=== PATIENT | female | born 1975 | race Caucasian/White ===

== ENCOUNTER 2021-08-08 08:09 | Emergency (ER) | payer OTHER, SELFPAY ==
[2021-08-08] VITALS (20 sets, daily range): BP systolic 108–157; BP diastolic 63–94; PULSE 62–79; RESP 18; TEMP 36.7; O2SAT 94–100; BMI 50.8
--- NOTE | 2021-08-08 08:53 | DI.MRI.S_ITS ---
PROCEDURE: MR STROKE Pre- and post-contrast brain MRI, non-contrast brain MR angiogram, pre- and postcontrast neck MR angiogram INDICATIONS: ataxia TECHNIQUE: Brain: Noncontrast axial T1 spin echo, axial T2 fast spin echo, sagittal and axial FLAIR, coronal T2 fast spin echo, axial gradient echo, axial diffusion and ADC through the brain. After the administration of contrast, axial 3D VIBE of the cranial vasculature and brain. Brain MRA: Non-contrast 3-D time of flight MR angiogram, with multiple zmxfssg-rudjiyabi-cvteusiole (MIP) reformats performed. Neck MRA: Axial and sagittal TruFISP through the neck. Coronal dynamic MR angiogram during administration of contrast in the arterial and venous phases, with 3-dimenstional ondakcu-zmcivxion-zuctkcndzy (MIP) reformats constructed from subtraction images. COMPARISON: None. FINDINGS: Image quality: Excellent. BRAIN: CSF spaces: Ventricles are normal in size and shape. Basal cisterns are patent. No extra-axial fluid collections. Brain: No intracranial bleeds or mass effects. Caro-white matter interface is normal. Diffusion weighted images show no acute ischemic insults. Brainstem appears normal. Normal intravascular flow voids are present. No abnormal intracranial enhancement. Skull and face: Calvarial marrow signal is normal. Orbits appear normal. Sinuses: Sinuses and mastoids are clear. BRAIN MR ANGIOGRAM: Anterior circulation: Intracranial internal carotid arteries are normal in size and enhancement. The flow within the paired anterior cerebral arteries is normal and symmetric. The flow within the middle cerebral arteries is normal and symmetric. The anterior communicating artery is seen. No stenoses, occlusions, or aneurysms. Posterior circulation: The visualized portions of the vertebral arteries demonstrate normal caliber, and join to form a normal appearing basilar artery. The flow within the posterior cerebral arteries is normal and symmetric. No stenoses, occlusions, or aneurysms. Vertebral arteries are codominant. NECK MR ANGIOGRAM: Carotids: Great vessels demonstrate a conventional anatomy as they arise from the aortic arch. The origins of the common carotid arteries appear patent. The calibers and courses of both common carotid arteries are normal. The bifurcation regions appear normal bilaterally. The internal carotid arteries demonstrate normal course and caliber. Posterior circulation: The origins of the vertebral arteries appear patent. More superior portions of both vertebral arteries demonstrate normal course and caliber, and join to form a normal appearing basilar artery. Miscellaneous: Subclavian arteries appear patent. Pre-contrast images through the neck show no soft tissue abnormalities. IMPRESSION: 1. No acute intracranial process. 2. No areas of hemodynamically significant stenosis, vascular occlusion or aneurysmal dilation within the anterior or posterior circulation. 3. No areas of hemodynamically significant stenosis, vascular occlusion or aneurysmal dilation within the neck vasculature. Dictated by: Kate Ritter M.D. on 08/08/2021 at 10:26 Approved by: Kate Ritter M.D. on 08/08/2021 at 10:28
--- NOTE | 2021-08-08 08:53 | DI.ECHO.S_ITS ---
[facility] +---------+ : : [address] : : : : [id number] : : : : Phone: [phone] Echocardiogram Report + + :Name: RUDDY RADFORD Study Date: 08/08/2021 Height: 60 in : :[facility] ReadingLocation: Weight: 260 lb : : Gender: Female BSA: 2.1 m2 : :: 1975 Age: 45 yrs BP: 142/86 mmHg: :Reason For Study: TIA, ATAXIA, DIZZINESS : :Ordering Physician: YENI, : :EL Performed By: Kanchan Tai : :Referring: EL JAIME : + + Interpretation Summary 1) Normal left ventricular thickness, size, wall motion, and systolic function (EF 55-60%). 2) Normal right ventricular size and function. 3) No significant valvular abnormalities. 4) Injection of contrast documented no interatrial shunt. 5) No prior Echo available for comparison. Procedure: A two-dimensional transthoracic echocardiogram with color flow and Doppler was performed. The study quality was technically adequate. There is no prior echocardiogram noted for this patient. A saline contrast injection was performed to assess for cardiac shunting. The injection was performed through an intravenous line in the right arm. The patient was in sinus rhythm with heart rates between 63-73 bpm during the exam. Left Ventricle: The left ventricle is normal in size and wall thickness. The ejection fraction is estimated to be 55-60%. Left ventricular systolic function appears normal without focal wall motion abnormalities. Diastolic parameters suggest probable normal left ventricular diastolic function and normal filling pressures. Right Ventricle: The right ventricle is grossly normal size. The right ventricular systolic function is normal. Atria: The left atrial size is normal. Right atrial size is normal. There is no Doppler evidence for an interatrial shunt. Injection of contrast documented no interatrial shunt. Mitral Valve: The mitral valve is normal in structure and function. There is mild mitral regurgitation. Aortic Valve: The aortic valve is grossly normal. The aortic valve is not well visualized. There is no aortic valve stenosis. There is trace aortic regurgitation. Tricuspid Valve: The tricuspid valve is normal in structure and function. No tricuspid regurgitation. Pulmonic Valve: The pulmonic valve is not well seen, but is grossly normal. There is no pulmonic valvular regurgitation. Great Vessels: The aortic root is normal size. The dimensions of the ascending aorta are normal. The IVC is of normal diameter and collapses greater than 50% with a sniff. This suggests a low right atrial pressure of 3 mm Hg. Pericardium/ Pleura There is no pericardial effusion. There is no pleural effusion. MMode/2D Measurements & Calculations LVIDd: 4.8 cm LVOT diam: 2.1 cm LVIDs: 3.3 cm Ao root diam: 3.0 cm FS: 31.2 % asc Aorta Diam: 3.1 cm IVSd: 0.77 cm Ao Arch Diam (Prox Trans): 3.0 cm LVPWd: 0.54 cm LV franks. diameter/BSA (cm/m^2): 2.3 LV sys. diameter/BSA (cm/m^2): 1.6 LA A2 area: 19.6 cm2 RA long axis: 5.1 cm LA A4 area: 22.7 cm2 RA area: 15.4 cm2 LA length (vol): 5.8 cm RA vol: 39.5 ml LA vol: 65.1 ml RA : 18.9 ml/m2 LA vol index: 31.2 ml/m2 IVC diam: 1.7 cm TAPSE: 2.1 cm Doppler Measurements & Calculations Ao V2 max: 143.2 cm/sec LVOT Max Issa: 86.7 cm/sec Ao V2 mean: 99.2 cm/sec LV V1 max P.0 mmHg Ao max P.2 mmHg LV V1 VTI: 19.9 cm Ao mean P.5 mmHg MITCHELL(I,D): 2.1 cm2 Ao V2 VTI: 31.7 cm MITCHELL(V,D): 2.0 cm2 sev ratio: 0.63 MITCHELL indexed to BSA (cm^2/m^2): 1.0 MV E max issa: 98.9 cm/sec PA V2 max: 92.3 cm/sec MV A max issa: 60.0 cm/sec PA V2 mean: 58.0 cm/sec MV E/A: 1.6 PA mean P.6 mmHg Med Peak E' Issa: 12.6 cm/sec PA pr(Accel): 34.5 mmHg E/E' med: 7.9 Lat Peak E' Issa: 12.4 cm/sec E/E' lat: 8.0 E/e' average: 7.9 MV dec time: 0.19 sec SV(LVOT): 66.4 ml Reading Physician:01:[id number] PM
--- NOTE | 2021-08-08 08:54 | ED_ITS ---
HPI - General Adult General Chief complaint: Dizziness Stated complaint: States syncope, SOB Time Seen by Provider: 08/08/21 08:42 History of Present Illness HPI narrative: Patient here for complaints dizziness/off balance/visual changes and near syncope. Patient states symptoms started 3 weeks ago. Has had 1 episode each week. Including this morning. Feels off balance at this time. Denies any headache chest pain palpitations. No anemia. No black or bloody stools. No nausea vomiting diarrhea. No fluid losses. Denies . No prior history of heart attack strokes or diabetes or arrhythmia. No family history of heart attack stroke or arrhythmia. 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 Symptoms occur mostly in the morning times when she gets up. She does get dizzy with positional changes as well. No slurred speech or facial droop. No limb numbness tingling or weakness. Related Data Home Medications Medication Instructions Recorded Confirmed cholecalciferol (vitamin D3) PO 11/03/18 12/04/18 drospirenone 3 mg-ethinyl 1 tab PO DAILY 11/03/18 12/04/18 estradiol 0.02 mg tablet (GINA (28)) duloxetine 20 mg capsule,delayed 20 mg PO DAILY 11/03/18 12/04/18 release gabapentin 100 mg capsule 100 mg PO DAILY PRN 11/03/18 12/04/18 gabapentin 800 mg tablet 800 mg PO BEDTIME 11/03/18 12/04/18 mecobalamin (vitamin B12) PO 11/03/18 12/04/18 methocarbamol 500 mg tablet 500 mg PO DAILY PRN 11/03/18 12/04/18 multivitamin 1 tab PO DAILY 11/03/18 12/04/18 spironolactone 100 mg tablet 100 mg PO DAILY 11/03/18 12/04/18 vitamin B complex (B Complex 1) 1 tab PO DAILY 11/03/18 12/04/18 bupropion HCl 150 mg 24 hr tablet, 150 mg PO QAM 12/04/18 12/04/18 extended release (Wellbutrin XL) cetirizine 10 mg tablet (Allergy 10 mg PO DAILY 12/04/18 12/04/18 Relief (cetirizine)) Allergies Allergy/AdvReac Type Severity Reaction Status Date / Time adhesive tape Allergy Hives and Verified 08/29/19 09:05 Skin Tears Opioids - Morphine Analogues AdvReac Gastrointestinal Verified 08/08/21 08:57 Upset Review of Systems Review of Systems Narrative: GENERAL: Denies chills, fatigue, malaise, fever, sweats. HEENT: Denies sinus pain, ear pain, sore throat RESPIRATORY: Denies dyspnea, cough CARDIOVASCULAR: Denies chest pain, palpitations, positive for near-syncope GASTROINTESTINAL: Denies nausea, vomiting, abdominal pain : Denies dysuria, frequency, hematuria MUSCULOSKELETAL: denies muscle or bony pain SKIN: Denies rash, skin lesions NEUROLOGIC: Denies weakness, numbness, positive for dizziness ROS Unobtainable: All systems reviewed & are unremarkable except as noted in HPI and below Patient History Medical History Obstructive sleep apnea Social History Smoking Status: Never smoker Smoking Status: Never smoker Exam Narrative Exam Narrative: GENERAL: in no distress, not toxic not dyspneic HEAD: Normocephalic. EYES: Pupils equal round No scleral icterus. ENT: Mucous membranes moist. NECK: Trachea midline. CARDIOVASCULAR: Regular rate and rhythm without murmurs RESPIRATORY: Clear to auscultation. Breath sounds equal bilaterally. No wheezes, rales, or rhonchi. GASTROINTESTINAL: Abdomen soft, non-tender EXTREMITIES: No gross deformities. BACK: No flank tenderness. NEURO: AOx4. Clear speech no facial droop, slightly off balance with gait however no foot drop. Light touch intact to bilateral face hands and ankles. Strong equal windshield repair technician bilaterally and ankle flexion hip flexion and knee flexion. Strong bilateral patellar reflexes. Steady Romberg, negative pronator drift SKIN: Warm and dry PSYCH: Not anxious, is cooperative Initial Vital Signs Initial Vital Signs: Vital Signs Pulse Rate 77 08/08/21 08:24 Pulse Oximetry 97 08/08/21 08:24 Course Course Course Narrative: No new issues during course of stay Orders Ordered: Discontinued Medications Sodium Chloride (Normal Saline 0.9%) 1,000 mls @ 1,000 mls/hr IV BOLUS ONE Stop: 08/08/21 09:51 Last Infusion: 08/08/21 15:27 Dose: 0 mls/hr Documented By: Admin: 08/08/21 09:11 Dose: 1,000 mls/hr Documented By: MARGIE Reevaluation(s) Reevaluation #1: Reviewed results with patient. They are reassuring as well as exam. As well as imaging. At this time patient resting comfortably. No symptoms. No distress. She agrees at this time and I will contact primary care to report today's findings and will likely need outpatient follow-up with including but limited to neurology and otolaryngology referral as well as possible Holter monitor. Time: 13:23 Reevaluation #2: Patient states she does not use her blood glucose monitor all the time and did to a couple of times with when she felt near these events. They have been normal. But not done blood glucose when she has full severity of episodes. She does agree with treatment plan of follow-up with primary care for further evaluation and referrals. Return precautions reviewed with her. Time: 13:57 Consultations Consultation #1: I spoke with primary care provider, Karie Bishop, nurse practitioner. She is aware of patient with some of her symptoms. She has been referred to Endocrinology for workup for glucose monitoring. She will have patient follow- up with neurology as well as otolaryngology and possible Holter monitor. Time: 13:30 Vital Signs Vital signs: Vital Signs - 8 hr 08/08/21 08:24 08/08/21 08:28 08/08/21 08:30 Temperature Pulse Rate 77 71 70 Pulse Rate [Orthostatic Lying] Pulse Rate [Orthostatic Sitting] Pulse Rate [Orthostatic Standing] Respiratory Rate Blood Pressure 129/65 Blood Pressure [Orthostatic Lying] Blood Pressure [Orthostatic Sitting] Blood Pressure [Orthostatic Standing] Pulse Oximetry 97 100 100 08/08/21 08:54 08/08/21 08:55 08/08/21 08:57 Temperature Pulse Rate 72 73 76 Pulse Rate [Orthostatic Lying] Pulse Rate [Orthostatic Sitting] Pulse Rate [Orthostatic Standing] Respiratory Rate Blood Pressure 131/76 157/94 H 157/87 H Blood Pressure [Orthostatic Lying] Blood Pressure [Orthostatic Sitting] Blood Pressure [Orthostatic Standing] Pulse Oximetry 99 99 100 08/08/21 08:58 08/08/21 09:00 08/08/21 09:01 Temperature Pulse Rate 71 69 Pulse Rate [Orthostatic Lying] 66 Pulse Rate [Orthostatic Sitting] 77 Pulse Rate [Orthostatic Standing] 77 Respiratory Rate Blood Pressure 108/63 Blood Pressure [Orthostatic Lying] 131/76 Blood Pressure [Orthostatic Sitting] 157/94 H Blood Pressure [Orthostatic Standing] 157/87 H Pulse Oximetry 100 100 08/08/21 09:15 08/08/21 09:30 08/08/21 09:37 Temperature 98.1 F Pulse Rate 79 67 67 Pulse Rate [Orthostatic Lying] Pulse Rate [Orthostatic Sitting] Pulse Rate [Orthostatic Standing] Respiratory Rate 18 Blood Pressure 142/86 H 140/88 140/88 Blood Pressure [Orthostatic Lying] Blood Pressure [Orthostatic Sitting] Blood Pressure [Orthostatic Standing] Pulse Oximetry 99 100 98 08/08/21 09:45 08/08/21 10:00 08/08/21 10:30 Temperature Pulse Rate 62 64 65 Pulse Rate [Orthostatic Lying] Pulse Rate [Orthostatic Sitting] Pulse Rate [Orthostatic Standing] Respiratory Rate Blood Pressure 134/75 129/71 Blood Pressure [Orthostatic Lying] Blood Pressure [Orthostatic Sitting] Blood Pressure [Orthostatic Standing] Pulse Oximetry 100 100 100 08/08/21 12:42 Temperature Pulse Rate 65 Pulse Rate [Orthostatic Lying] Pulse Rate [Orthostatic Sitting] Pulse Rate [Orthostatic Standing] Respiratory Rate Blood Pressure 130/86 Blood Pressure [Orthostatic Lying] Blood Pressure [Orthostatic Sitting] Blood Pressure [Orthostatic Standing] Pulse Oximetry 94 Medical Decision Making Differential Diagnosis Differential Diagnosis: TIA/stroke/arrhythmia/heart valve disease/anemia/dehydration Lab Data Result diagrams: 08/08/21 10:30 08/08/21 10:30 Labs: Lab Results 08/08/21 08/08/21 08/08/21 Range/Units 09:12 09:12 09:44 WBC (4.5-11.0) X10^3/uL RBC (4.0-5.2) X10^6/uL Hgb (12.0-16.0) g/dL Hct (36-46) % MCV (80-100) fL MCH (26-34) PG MCHC (30-36) % RDW (11.6-14.8) % Plt Count (150-400) X10^3/uL Neut % (Auto) (50-75) % Lymph % (Auto) (25-40) % [place] % (Auto) (3-14) % Eos % (Auto) (2-4) % Baso % (Auto) (0-2) % Neut # (Auto) (7542-3455) /uL Lymph # (Auto) (1959-4099) /uL Hutchinson # (Auto) (0-900) /uL Eos # (Auto) (0-450) /uL Baso # (Auto) (0-100) /uL Sodium (137-145) mmol/L Potassium (3.4-5.1) mmol/L Chloride (98-107) mmol/L Carbon Dioxide (22-32) mmol/L BUN (7-17) mg/dL Creatinine (0.52-1.04) mg/dL Estimated GFR (>60) mL/min BUN/Creatinine Ratio (6-22) Glucose (70-100) mg/dL Calcium (8.4-10.2) mg/dL Total Bilirubin (0.2-1.3) mg/dL AST (14-36) IU/L ALT (<35) IU/L Alkaline Phosphatase (38-126) U/L Total Creatine Kinase (30-135) U/L CK-MB (CK-2) (<2.37) ng/mL CK-MB (CK-2) Rel Index (1.5-5.0) % Troponin I (0.01-0.034) ng/mL Total Protein (6.3-8.2) g/dL Albumin (3.5-5.0) g/dL Globulin (1.7-4.1) g/dL Albumin/Globulin Ratio (1.0-2.8) Serum , Qual Negative (Negative) Urine Color Yellow Urine Appearance Clear Urine pH 6.0 (4.5-8.0) Ur Specific [place] <=1.005 (1.000-1.035) Urine Protein Negative (Negative) Urine Glucose (UA) Negative (Negative) g/dL Urine Ketones Negative (NEGATIVE) Urine Occult Blood Negative (Negative) Urine Nitrate Negative (Negative) Urine Bilirubin Negative (NEGATIVE) Urine Urobilinogen 0.2 (0.2) E.U./dL Ur Leukocyte Esterase Negative (NEGATIVE) Urine RBC 0-1/hpf (0-5/HPF) Urine WBC 0-1/hpf (0-5/HPF) Ur Squamous Epith Cells 0-1 /hpf (0-5/HPF) Urine Bacteria Few (2-10) H (None) Ur Culture Indicated? Cult not indicated U Opiates 300ng/mL cut Negative (Negative) Ur Oxycodone Screen Negative (Negative) Urine Methadone Screen Negative (Negative) Ur Barbiturates Screen Negative (Negative) U Tricyclic Antidepress Negative (Negative) Ur Phencyclidine Scrn Negative (Negative) Ur Amphetamines Screen Negative (Negative) U Methamphetamines Scrn Negative (Negative) Ur MDMA Scrn (Ecstasy) Negative (Negative) U Benzodiazepines Scrn Negative (Negative) Urine Cocaine Screen Negative (Negative) U Marijuana (THC) Screen Negative (Negative) 08/08/21 08/08/21 Range/Units 10:30 10:30 WBC 6.9 (4.5-11.0) X10^3/uL RBC 4.53 (4.0-5.2) X10^6/uL Hgb 12.6 (12.0-16.0) g/dL Hct 37.8 (36-46) % MCV 83.6 (80-100) fL MCH 27.9 (26-34) PG MCHC 33.4 (30-36) % RDW 13.9 (11.6-14.8) % Plt Count 283 (150-400) X10^3/uL Neut % (Auto) 47.7 L (50-75) % Lymph % (Auto) 41.3 H (25-40) % Hutchinson % (Auto) 6.6 (3-14) % Eos % (Auto) 3.4 (2-4) % Baso % (Auto) 1.0 (0-2) % Neut # (Auto) 3300 (8127-4417) /uL Lymph # (Auto) 2800 (6320-1688) /uL Hutchinson # (Auto) 500 (0-900) /uL Eos # (Auto) 200 (0-450) /uL Baso # (Auto) 100 (0-100) /uL Sodium 139 (137-145) mmol/L Potassium 4.1 (3.4-5.1) mmol/L Chloride 107 (98-107) mmol/L Carbon Dioxide 28 (22-32) mmol/L BUN 9 (7-17) mg/dL Creatinine 0.86 (0.52-1.04) mg/dL Estimated GFR > 60 (>60) mL/min BUN/Creatinine Ratio 10.5 (6-22) Glucose 92 (70-100) mg/dL Calcium 8.8 (8.4-10.2) mg/dL Total Bilirubin 0.9 (0.2-1.3) mg/dL AST 41 H (14-36) IU/L ALT 28 (<35) IU/L Alkaline Phosphatase 60 (38-126) U/L Total Creatine Kinase 300 H (30-135) U/L CK-MB (CK-2) 0.65 (<2.37) ng/mL CK-MB (CK-2) Rel Index 0.2 L (1.5-5.0) % Troponin I < 0.012 (0.01-0.034) ng/mL Total Protein 7.2 (6.3-8.2) g/dL Albumin 4.1 (3.5-5.0) g/dL Globulin 3.1 (1.7-4.1) g/dL Albumin/Globulin Ratio 1.3 (1.0-2.8) Serum , Qual (Negative) Urine Color Urine Appearance Urine pH (4.5-8.0) Ur Specific [place] (1.000-1.035) Urine Protein (Negative) Urine Glucose (UA) (Negative) g/dL Urine Ketones (NEGATIVE) Urine Occult Blood (Negative) Urine Nitrate (Negative) Urine Bilirubin (NEGATIVE) Urine Urobilinogen (0.2) E.U./dL Ur Leukocyte Esterase (NEGATIVE) Urine RBC (0-5/HPF) Urine WBC (0-5/HPF) Ur Squamous Epith Cells (0-5/HPF) Urine Bacteria (None) Ur Culture Indicated? U Opiates 300ng/mL cut (Negative) Ur Oxycodone Screen (Negative) Urine Methadone Screen (Negative) Ur Barbiturates Screen (Negative) U Tricyclic Antidepress (Negative) Ur Phencyclidine Scrn (Negative) Ur Amphetamines Screen (Negative) U Methamphetamines Scrn (Negative) Ur MDMA Scrn (Ecstasy) (Negative) U Benzodiazepines Scrn (Negative) Urine Cocaine Screen (Negative) U Marijuana (THC) Screen (Negative) Imaging Data Stroke MRI brain: Radiologist's Impression: [address] [address] Magnetic Resonance Report Signed Patient: Ruddy Radford MR#: [id number] : 1975 Acct:[id number] Age/Sex: 45 / F Date of Service: 08/08/21 Loc: ED Accession Number: [id number] ?? Procedure: MR stroke Ordering Provider: El Jaime MD PROCEDURE:? MR STROKE Pre- and post-contrast brain MRI, non-contrast brain MR angiogram, pre- and postcontrast neck MR angiogram ? INDICATIONS:? ataxia ? TECHNIQUE:? Brain:? Noncontrast axial T1 spin echo, axial T2 fast spin echo, sagittal and axial FLAIR, coronal T2 fast spin echo, axial gradient echo, axial diffusion and ADC through the brain.? After the administration of contrast, axial 3D VIBE of the cranial vasculature and brain.? Brain MRA:? Non-contrast 3-D time of flight MR angiogram, with multiple iaxavdo-ilciooska-afmrcdtaes (MIP) reformats performed.? Neck MRA:? Axial and sagittal TruFISP through the neck.? Coronal dynamic MR angiogram during administration of contrast in the arterial and venous phases, with 3- dimenstional iriqeyz-hrrpghwbw-llxguwzscs (MIP) reformats constructed from subtraction im ages.? ? COMPARISON:? None. ? FINDINGS:? Image quality:? Excellent.? ? BRAIN:? CSF spaces:? Ventricles are normal in size and shape.? Basal cisterns are patent.? No extra-axial fluid collections.? Brain:? No intracranial bleeds or mass effects.? Caro-white matter interface is normal.? Diffusion weighted images show no acute ischemic insults.? Brainstem appears normal.? Normal intravascular flow voids are present.? No abnormal intracranial enhancement.? Skull and face:? Calvarial marrow signal is normal.? Orbits appear normal.? Sinuses:? Sinuses and mastoids are clear.? ? BRAIN MR ANGIOGRAM:? Anterior circulation:? Intracranial internal carotid arteries are normal in size and enhancement.? The flow within the paired anterior cerebral arteries is normal and symmetric.? The flow within the middle cerebral arteries is normal and symmetric.? The anterior communicating artery is seen.? No stenoses, occlusions, or aneurysms.? Posterior circulation:? The visualized portions of the vertebral arteries demonstrate normal caliber, and join to form a normal appearing basilar artery.? The flow within the posterior cerebral arteries is normal and symmetric.? No stenoses, occlusions, or aneurysms.? Vertebral arteries are codominant. ? NECK MR ANGIOGRAM:? Carotids:? Great vessels demonstrate a conventional anatomy as they arise from the aortic arch.? The origins of the common carotid arteries appear patent.? The calibers and courses of both common carotid arteries are normal.? The bifurcation regions appear normal bilaterally.? The internal carotid arteries demonstrate normal course and caliber. ? Posterior circulation:? The origins of the vertebral arteries appear patent.? More superior portions of both vertebral arteries demonstrate normal course and caliber, and join to form a normal appearing basilar artery.? Miscellaneous:? Subclavian arteries appear patent.? Pre-contrast images through the neck show no soft tissue abnormalities.? ? IMPRESSION:? ? 1. No acute intracranial process. ? ? 2. No areas of hemodynamically significant stenosis, vascular occlusion or aneurysmal dilation within the anterior or posterior circulation. ? ? ? 3.? No areas of hemodynamically significant stenosis, vascular occlusion or aneurysmal dilation within the neck vasculature. ? ? ? Dictated by: Kate Ritter M.D. on 08/08/2021 at 10:26 ? ? Approved by: Kate Ritter M.D. on 08/08/2021 at 10:28 ? Echocardiogram: Radiologist's Impression: [address] [address] Echocardiography Report Signed Patient: Ruddy Radford MR#: [id number] : 1975 Acct:[id number] Age/Sex: 45 / F Date of Service: 08/08/21 Loc: ED Accession Number: [id number] ?? Procedure: EC echo doppler complete Ordering Provider: El Jaime MD ? [facility] +---------+? [facility]? +---------+ : ? :? [address] [place] [address]. ? : ? : : ? :? [place], [place] ? : ? : : ? :? [address] ? : ? : : ? : ? Phone: [phone] : ? : [phone]? [phone]? +---------+ ? Echocardiogram Report + + :Name: RUDDY RADFORD ? Study Date: 08/08/2021 ? Height: 60 in? : :Hospital ? ? ReadingLocation: ? Weight: 260 lb : : ? Gender: Female ? BSA: 2.1 m2? ? : :: 1975? Age: 45 yrs? BP: 142/86 mmHg: :Reason For Study: TIA, ATAXIA, DIZZINESS ? : :Ordering Physician: YENI,? : :EL? Performed By: Kanchan Tai? : :Referring: EL JAIME ? : + + Interpretation Summary 1) Normal left ventricular thickness, size, wall motion, and systolic function (EF 55-60%). 2) Normal right ventricular size and function. 3) No significant valvular abnormalities. 4) Injection of contrast documented no interatrial shunt. 5) No prior Echo available for comparison. ? Procedure: ? A two-dimensional transthoracic echocardiogram with color flow and Doppler was performed. The study quality was technically adequate. There is no prior echocardiogram noted for this patient. A saline contrast injection was performed to assess for cardiac shunting. The injection was performed through an intravenous line in the right arm. The patient was in sinus rhythm with heart rates between 63-73 bpm during the exam. Left Ventricle: ? The left ventricle is normal in size and wall thickness. The ejection fraction is estimated to be 55-60%. Left ventricular systolic function appears normal without focal wall motion abnormalities. Diastolic parameters suggest probable normal left ventricular diastolic function and normal filling pressures. Right Ventricle: ? The right ventricle is grossly normal size. The right ventricular systolic function is normal. Atria: ? The left atrial size is normal. Right atrial size is normal. There is no Doppler evidence for an interatrial shunt. Injection of contrast documented no interatrial shunt. Mitral Valve: ? The mitral valve is normal in structure and function. There is mild mitral regurgitation. Aortic Valve: ? The aortic valve is grossly normal. The aortic valve is not well visualized. There is no aortic valve stenosis. There is trace aortic regurgitation. Tricuspid Valve: ? The tricuspid valve is normal in structure and function. No tricuspid regurgitation. Pulmonic Valve: ? The pulmonic valve is not well seen, but is grossly normal. There is no pulmonic valvular regurgitation. Great Vessels: ? The aortic root is normal size. The dimensions of the ascending aorta are normal. The IVC is of normal diameter and collapses greater than 50% with a sniff. This suggests a low right atrial pressure of 3 mm Hg. Pericardium/ Pleura ? There is no pericardial effusion. There is no pleural effusion. ? MMode/2D Measurements & Calculations LVIDd: 4.8 cm? LVOT diam: 2.1 cm LVIDs: 3.3 cm? Ao root diam: 3.0 cm FS: 31.2 % ? asc Aorta Diam: 3.1 cm IVSd: 0.77 cm? Ao Arch Diam (Prox Trans): 3.0 cm LVPWd: 0.54 cm LV franks. diameter/BSA (cm/m^2): 2.3 LV sys. diameter/BSA (cm/m^2): 1.6 ? LA A2 area: 19.6 cm2 ? RA long axis: 5.1 cm LA A4 area: 22.7 cm2 ? RA area: 15.4 cm2 LA length (vol): 5.8 cm? RA vol: 39.5 ml LA vol: 65.1 ml? RA : 18.9 ml/m2 LA vol index: 31.2 ml/m2 ? IVC diam: 1.7 cm ? TAPSE: 2.1 cm ? Doppler Measurements & Calculations Ao V2 max: 143.2 cm/sec? LVOT Max Issa: 86.7 cm/sec Ao V2 mean: 99.2 cm/sec? LV V1 max P.0 mmHg Ao max P.2 mmHg? LV V1 VTI: 19.9 cm Ao mean P.5 mmHg ? MITCHELL(I,D): 2.1 cm2 Ao V2 VTI: 31.7 cm ? MITCHELL(V,D): 2.0 cm2 ? sev ratio: 0.63 ? MITCHELL indexed to BSA (cm^2/m^2): 1.0 ? MV E max issa: 98.9 cm/sec? PA V2 max: 92.3 cm/sec MV A max issa: 60.0 cm/sec? PA V2 mean: 58.0 cm/sec MV E/A: 1.6? PA mean P.6 mmHg Med Peak E' Issa: 12.6 cm/sec ? ? ? PA pr(Accel): 34.5 mmHg E/E' med: 7.9 Lat Peak E' Issa: 12.4 cm/sec E/E' lat: 8.0 E/e' average: 7.9 MV dec time: 0.19 sec ? SV(LVOT): 66.4 ml ? Reading Physician:01:05 PM ECG Data Interpretation: Normal sinus rhythm rate [address] elevation or depression. No arrhythmia MDM Narrative Medical decision making narrative: Appropriate for discharge home. Exam and laboratory studies and imaging are reassuring. Onset 3 weeks ago. At this time differential diagnosis includes but not limited to arrhythmia/anemia/TIA/stroke, she does have a family doctor/nurse practitioner to follow-up with at the [facility], Karie Bishop. Will need extended workup including Neurology and otolaryngology and possible Holter monitor Discharge Plan Departure Patient Disposition: Home Clinical Impression: Dizziness Instructions: DI for Dizziness-Nonvertigo Activity Restrictions/Additional Instructions: See family doctor this week for re-evaluation. I have contacted her and she is expecting her call, she agrees you will need a referral to otolaryngology/ENT as well as Neurology and possible Holter monitor for your heart. Be sure to care your blood glucose monitor with you and to check it when he has these episodes. Return if worsening questions or concerns Prescriptions: No Action cetirizine [Allergy Relief (cetirizine)] 10 mg tablet 10 mg PO DAILY bupropion HCl [Wellbutrin XL] 150 mg tablet extended release 24 hr 150 mg PO QAM multivitamin tablet 1 tab PO DAILY methocarbamol 500 mg tablet 500 mg PO DAILY PRN spironolactone 100 mg tablet 100 mg PO DAILY gabapentin 800 mg tablet 800 mg PO BEDTIME vitamin B complex [B Complex 1] tablet 1 tab PO DAILY gabapentin 100 mg capsule 100 mg PO DAILY PRN duloxetine 20 mg capsule,delayed release(DR/EC) 20 mg PO DAILY drospirenone-ethinyl estradiol [GINA (28)] 3-0.02 mg tablet 1 tab PO DAILY cholecalciferol (vitamin D3) PO mecobalamin (vitamin B12) PO
[2021-08-08] MEDS: SODIUM CHLORIDE 0.9% 1,000 ML 1000 ML IV (09:11)
[2021-08-08 09:51] LABS: Appearance Urine UA CLEAR; Bilirubin Urine UA NEGATIVE (NEGATIVE); Color Urine UA YELLOW; Glucose Urine UA NEGATIVE (Negative); Ketones Urine UA NEGATIVE (NEGATIVE); Leukocyte Esterase Urine UA NEGATIVE (NEGATIVE); Nitrite Urine UA NEGATIVE (Negative); Occult Blood Urine UA NEGATIVE (Negative); Protein Urine UA NEGATIVE (Negative); Specific Gravity Urine UA <=1.005 (1.000-1.035); Urobilinogen Urine UA 0.2 E.U./dL (0.2)
[2021-08-08 10:10] LABS: RBC Urine 0-1/HPF (0-5/HPF); WBC Urine 0-1/HPF (0-5/HPF)
[2021-08-08 10:11] LABS: Bacteria Urine Few (2-10); Culture Indicated Urine Cult Not Indicated; Squamous Epithelial Cell Urine 0-1 /HPF (0-5/HPF)
[2021-08-08 10:15] LABS: Pregnancy Test Serum,Qual Negative (Negative); UR Morphine/Opiate cutoff 300 Negative (Negative); Ur Creatinine Normal (Normal); Ur Specific Gravity Normal (Normal); Urine Amphetamines Negative (Negative); Urine Barbiturates Negative (Negative); Urine Benzodiazepines Negative (Negative); Urine Cocaine Negative (Negative); Urine MDMA Negative (Negative); Urine Methadone Negative (Negative); Urine Methamphetamines Negative (Negative); Urine Oxycodone Negative (Negative); Urine Phencyclidine Negative (Negative); Urine Tetrahydrocannabinol Negative (Negative); Urine Tricyclic Antidepressant Negative (Negative); Urine pH Normal (Normal)
[2021-08-08 10:42] LABS: Add Manual Diff / Slide Review NO; Basophils Absolute Auto 100 /uL (0-100); Eosinophils Absolute Auto 200 /uL (0-450); Eosinophils Percent Auto 3.4 % (2-4); Hematocrit 37.8 % (36-46); Hemoglobin 12.6 g/dL (12.0-16.0); Lymphocytes Absolute Auto 2800 /uL (1100-4500); Lymphocytes Percent Auto 41.3 % (25-40); Mean Corpuscular HGB Conc 33.4 % (30-36); Mean Corpuscular Hemoglobin 27.9 PG (26-34); Mean Corpuscular Volume 83.6 fL (80-100); Monocytes Absolute Auto 500 /uL (0-900); Monocytes Percent Auto 6.6 % (3-14); Neutrophils Absolute Auto 3300 /uL (1500-7000); Neutrophils Percent Auto 47.7 % (50-75); Platelet Count 283 X10^3/uL (150-400); Red Blood Cell Count 4.53 X10^6/uL (4.0-5.2); Red Cell Distribution Width 13.9 % (11.6-14.8); White Blood Cell Count 6.9 X10^3/uL (4.5-11.0)
[2021-08-08 10:57] LABS: Alanine Aminotransferase 28 IU/L (<35); Albumin 4.1 g/dL (3.5-5.0); Albumin Globulin Ratio 1.3 (1.0-2.8); Alkaline Phosphatase 60 U/L (38-126); Aspartate Aminotransferase 41 IU/L (14-36); BUN Creatinine Ratio 10.5 (6-22); Bilirubin Total 0.9 mg/dL (0.2-1.3); Blood Urea Nitrogen 9 mg/dL (7-17); Calcium 8.8 mg/dL (8.4-10.2); Carbon Dioxide 28 mmol/L (22-32); Chloride 107 mmol/L (98-107); Creatine Kinase 300 U/L (30-135); Estimated Glomerular Filt Rate > 60 mL/min (>60); Globulin 3.1 g/dL (1.7-4.1); Glucose 92 mg/dL (70-100); HEMOLYSIS < 15 (0-50); Potassium 4.1 mmol/L (3.4-5.1); Sodium 139 mmol/L (137-145); Total Protein 7.2 g/dL (6.3-8.2)
[2021-08-08 11:08] LABS: Troponin I < 0.012 ng/mL (0.01-0.034)
[2021-08-08 11:12] LABS: CKMB % Relative Index 0.2 % (1.5-5.0); Creatine Kinase MB 0.65 ng/mL (<2.37)
== END 2021-08-08 14:15 | disposition home or self-care (01) ==
PROVIDERS: Emergency Provider Emergency Medicine
DX: R42 Dizziness and giddiness (principal)
CPT/HCPCS: 36415; 70548; 70553; 80053; 80305; 81001; 82550; 82553; 84484; 84703; 85025; 93005; 93010; 93306; 99284; A9579